=== PATIENT | male | born 1965 | race Caucasian/White ===

== ENCOUNTER → 2017-03-01 | Outpatient (CLI) | payer OTHER | LOC: FCPNEURO 06:30 | PROVIDERS: ATTEND Psychiatry & Neurology Sleep Medicine | DX: G47.33 Obstructive sleep apnea (adult) (pediatric) (principal) ==

== ENCOUNTER 2017-07-15 06:53 | Day surgery (SDC) | payer OTHER ==
--- NOTE | 2017-07-15 08:36 | PDGENHP ---
History & Physical Chief Complaint: Needs screening colonoscopy History of Present Illness: Same Relevant Physical Exam: GED: NAD. Cardiac: RRR. Lungs: CTA B. Abd: Soft, nt, nd
[2017-07-15 08:59] VITALS: PULSE 49
[2017-07-15] MEDS ORDERED: LIDOCAINE 1% 2 ML INJ ID PRN (09:00)
[2017-07-15] MEDS ORDERED: LR 1,000 ML IV ONE (09:00)
[2017-07-15] MEDS ORDERED: MIDAZOLAM 2 MG/2 ML VIAL IVP ONE (09:16)
--- NOTE | 2017-07-15 09:16 | PDANEPAE ---
ANE History of Present Illness Colonoscopy ANE Past Medical History - Cardiovascular History Hx Hypertension: No Hx Arrhythmias: No Hx Chest Pain: No Hx Coronary Artery / Peripheral Vascular Disease: No Hx CHF / Valvular Disease: No Hx Palpitations: No - Pulmonary History Hx COPD: No Hx Asthma/Reactive Airway Disease: No Hx Recent Upper Respiratory Infection: No Hx Oxygen in Use at Home: No Hx Sleep Apnea: Yes Sleep Apnea Screening Result - Last Documented: Positive Pulmonary History Comment: POS SLEEP APNEA - Neurologic History Hx Cerebrovascular Accident: No Hx Seizures: No Hx Dementia: No - Endocrine History Hx Diabetes: No Endocrine History Comment: HYPOTHYROID - Renal History Hx Renal Disorders: No - Liver History Hx Hepatic Disorders: No - Neurological & Psychiatric Hx Hx Neurological and Psychiatric Disorders: No - Cancer History Hx Cancer: No - Congenital Disorder History Hx Congenital Disorders: No - GI History Hx Gastrointestinal Disorders: No - Other Health History Other Health History: ECZEMA - Chronic Pain History Chronic Pain: No - Surgical History Prior Surgeries: HERNIA ANE Review of Systems Review of Systems: - Exercise capacity METS (RN): 4 METS ANE Patient History - Allergies Allergies/Adverse Reactions: No Known Allergies Allergy (Unverified 06/20/17 16:09) - Home Medications Home Medications: Herbals/Supplements -Info Only 06/20/17 [Last Taken Unknown] Levothyroxine 06/20/17 [Last Taken 07/14/17 14:00] Lunesta 06/20/17 [Last Taken 07/14/17 07:30] - NPO status NPO Since - Liquids (Date): 07/14/17 NPO Since - Liquids (Time): 23:55 NPO Since - Solids (Date): 07/14/17 NPO Since - Solids (Time): 07:30 - Anes Hx Anes Hx: no prior problems - Smoking Hx Smoking Status: Former smoker - Alcohol Use Alcohol Use: Sober - Family Anes Hx Family Anes Hx: none Family Hx Anesthesia Complications: NEG ANE Labs/Vital Signs - Vital Signs Blood Pressure: 123/80 Heart Rate: 49 Respiratory Rate: 16 O2 Sat (%): 97 Height: 190.5 cm Weight: 104.326 kg ANE Physical Exam - Airway Neck exam: FROM Mallampati Score: Class 2 - Pulmonary Pulmonary: no respiratory distress - Cardiovascular Cardiovascular: regular rate and rhythym - ASA Status ASA Status: II ANE Anesthesia Plan Anesthesia Plan: GA with mask Total IV Anesthesia: Yes
[2017-07-15] MEDS ORDERED: LIDOCAINE 2% 5 ML SDV ONE (09:21)
[2017-07-15] MEDS ORDERED: PROPOFOL/EMULSION 500 MG/50 ML BOTTLE IV ONE (09:21)
[2017-07-15] MEDS ORDERED: MIDAZOLAM 2 MG/2 ML VIAL ONE (09:23)
[2017-07-15] MEDS ORDERED: ACETAMINOPHEN 500 MG TAB PO PRN (09:30)
[2017-07-15] MEDS ORDERED: ONDANSETRON 4 MG/2 ML VIAL IVP PRN (09:30)
[2017-07-15] MEDS ORDERED: NALOXONE HCL 0.4 MG/ML INJ IVP PRN (09:30)
--- NOTE | 2017-07-15 09:51 | GIREPORT ---
[facility] - Endoscopy Department Patient Name: Karmen Green Procedure Date: 07/15/2017 9:20 AM Patient Type: Outpatient Attending / [place] Physician: Jacques Silver MD Procedure: Colonoscopy Indications: Screening for colorectal malignant neoplasm. This is the patient's first colonoscopy. Providers: Jacques Silver MD Medicines: Monitored Anesthesia Care Complications: No immediate complications. Findings: The perianal and digital rectal examinations were normal. The terminal ileum appeared normal. A 4 mm polyp was found in the appendiceal orifice. The polyp was semi-pedunculated. The polyp was removed with a cold snare. Resection and retrieval were complete. Verification of patient identification for the specimen was done by the physician and nurse using the patient's name and date. Estimated blood loss was minimal. Five sessile polyps were found in the rectum and sigmoid colon. The polyps were 1 to 2 mm in size. These polyps were removed with a cold biopsy forceps. Resection and retrieval were complete. Verification of patient identification for the specimen was done by the physician and nurse using the patient's name and date. Estimated blood loss was minimal. The retroflexed view of the distal rectum and anal verge was normal and showed no anal or rectal abnormalities. Estimated Blood Loss: Estimated blood loss: none. Post Op Diagnosis: - The examined portion of the ileum was normal. - One 4 mm polyp at the appendiceal orifice, removed with a cold snare. Resected and retrieved. - Five 1 to 2 mm polyps in the rectum and in the sigmoid colon, removed with a cold biopsy forceps. Resected and retrieved. - The distal rectum and anal verge are normal on retroflexion view. Recommendation: - Discharge patient to home (with escort). - Resume previous diet. - Continue present medications. - Repeat colonoscopy date to be determined after pending pathology results are reviewed for surveillance based on pathology results. Repeat colonoscopy in 3 years if 3 or more polyps are found to be adenomatous. Repeat colonoscopy in 5 years if 1-2 polyps are found to be adenomatous. - Your pathology results are available within 10 days. - Thank you for allowing me to participate in the care of your patient. Attending Participation: I personally performed the entire procedure. Jacques Silver MD Jacques Silver MD 07/15/2017 9:51:35 AM Number of Addenda: 0 Note Initiated On: 07/15/2017 9:20 AM Total Procedure Duration Time 0 hours 17 minutes 46 seconds [email or web address]
--- NOTE | 2017-07-15 10:27 | POSTANESTH ---
Post Anesthetic Evaluation Cardiovascular Status: Normal, Stable Respiratory Status: Normal, Stable Level of Consciousness/Mental Status: Can Participate in Eval Pain Control: Adequate, Prn Tx Ordered Nausea/Vomiting Control: Adequate, Prn Tx Ordered Complications Possibly Related to Anesthesia: None Noted
[2017-07-15 10:39] VITALS: TEMP 97.5
[2017-07-15 10:40] VITALS: RESP 15
[2017-07-15 12:06] VITALS: BP 112/85; O2SAT 99
== END 2017-07-15 11:36 | disposition home or self-care (01) ==
LOC: FSGY 06:53
PROVIDERS: ATTEND Internal Medicine Gastroenterology
PROC: 0DBN8ZX Excision of Sigmoid Colon, Via Natural or Artificial Opening Endoscopic, Diagnostic (ICD-10-PCS; principal; 2017-07-15 10:00)
PROC: 0DBH8ZX Excision of Cecum, Via Natural or Artificial Opening Endoscopic, Diagnostic (ICD-10-PCS; principal; 2017-07-15 10:00)
PROC: 0DBP8ZX Excision of Rectum, Via Natural or Artificial Opening Endoscopic, Diagnostic (ICD-10-PCS; principal; 2017-07-15 10:00)
DX: Z12.11 Encounter for screening for malignant neoplasm of colon (principal); D12.0 Benign neoplasm of cecum; K62.1 Rectal polyp; K63.5 Polyp of colon; E03.9 Hypothyroidism, unspecified
CPT/HCPCS: J2250; J2704